=== PATIENT | male | born 1975 | race Caucasian/White ===

== ENCOUNTER → 2016-11-27 | Outpatient (CLI) | payer BC ==
[~2016-11-27] MED LIST: FERR50TA3 PO; HYDR12.55 PO; METO25TA56 PO; PRLSRUNK PO; SUCR1TAB PO
--- NOTE | 2016-11-27 09:03 | DIAGNOSTIC IMAGING REPORT ---
CHEST 2 VIEWS ROUTINE HISTORY: I20.8 Exertional [id number] COMPARISON: Chest 03/08/2008. FINDINGS: The lungs are clear. Cardiac silhouette is normal in size. No pleural effusions. No pneumothorax. IMPRESSION: No acute process. Electronically signed by: Alan Mejia M.D. 11/27/2016 9:01 AM
== END | disposition home or self-care (01) ==
LOC: C.RAD1850 08:22
PROVIDERS: ATTEND Internal Medicine Cardiovascular Disease
DX: I20.8 Other forms of angina pectoris (principal)

== ENCOUNTER 2016-11-28 13:33 | Inpatient (IN) | payer BC ==
[2016-11-28] VITALS (12 sets, daily range): BP systolic 130–156; BP diastolic 77–96; PULSE 63–92; TEMP 36.6–37.2; O2SAT 96–100; Ht 185.4 cm; Wt 128.6 kg
[~2016-11-28] VITALS: Ht 185.4 cm; Wt 128.6 kg
[~2016-11-28 13:33] MED LIST changes: -FERR50TA3 PO; -HYDR12.55 PO; -METO25TA56 PO; -SUCR1TAB PO
[2016-11-28] MEDS ORDERED: SODIUM CHLORIDE 0.9% 1000ML 1,000 ML IV STA (13:51)
[2016-11-28] MEDS ORDERED: HYDR12.55 PO (14:04)
[2016-11-28] MEDS ORDERED: METO25TA56 PO (14:04)
--- NOTE | 2016-11-28 14:26 | DIAGNOSTIC IMAGING REPORT ---
CHEST ONE VIEW PORTABLE CLINICAL HISTORY: GI bleed COMPARISON STUDY: 11/27/2016 FINDINGS: The heart is borderline enlarged. There is no failure. There is no focal pulmonary consolidation. There are no pleural effusions.[ IMPRESSION: No active disease in the chest. Electronically signed by: Shahram Newell M.D. 11/28/2016 2:24 PM Dictated Date/Time: 11/28/2016 2:24 PM
[2016-11-28 14:34] LABS: PARTIAL THROMBOPLASTIN RATIO 0.8; PROTHROMBIN TIME (PATIENT) 10.5 SECONDS (9.0-12.0)
[2016-11-28 14:47] LABS: HEMATOCRIT 24.6 % (42-52); MEAN CELL VOLUME 60.9 fL (80-100); MEAN CORPUSCULAR HEMOGLOBIN 14.9 pg (25-34); MEAN CORPUSCULAR HGB CONC 24.4 g/dl (32-36); PLATELET COUNT 368 K/uL (130-400); RED BLOOD COUNT 4.04 M/uL (4.7-6.1)
[2016-11-28 14:50] LABS: ALT/SGPT 21 U/L (12-78); AST/SGOT 10 U/L (15-37); BLOOD UREA NITROGEN 14 mg/dl (7-18); BUN/CREATININE RATIO 12.8 (10-20); CALCIUM 8.4 mg/dl (8.5-10.1); CARBON DIOXIDE 26 mmol/L (21-32); CHLORIDE 105 mmol/L (98-107); GLUCOSE 151 mg/dl (70-99); POTASSIUM 3.2 mmol/L (3.5-5.1); SODIUM 140 mmol/L (136-145)
[2016-11-28 14:53] LABS: ALKALINE PHOSPHATASE 63 U/L (45-117); ANISOCYTOSIS PRESENT; BASO % 1.1 %; BASO ABS # 0.09 K/uL (0-0.2); COMPLETE YES; EOS % 0.7 %; HYPOCHROMIA PRESENT; IG% 0.2 %; LYMPH % 24.8 %; LYMPH ABS # 2.06 K/uL (1.2-3.4); MICROCYTOSIS PRESENT; MONO % 7.5 %; NEUT % 65.7 %; POIKILOCYTOSIS PRESENT; TEAR DROP CELLS 1+
[2016-11-28] MEDS ORDERED: PANTOprazole INJ 80 MG in DEXTROSE 5% 100ML IV ONE (16:00)
--- NOTE | 2016-11-28 16:02 | History and Physical ---
History & Physical Date & Time of Service: Nov 28, 2016 at 16:01 Chief Complaint: Ref. By Doctor-Transfusion Primary Care Physician: Yue Jade MD History of Present Illness 41M sent to the ER by his pondman for anemia. Pt has been having chest pain with exertion since the summer, chest pain happened during activities, but was not related to meals, pain was described as burning, non radiating, and NOT like an elephant sitting on his chest, didn't radiate to the arm or mouth. Pt was getting worked up by his pondman this week, Dr. Guzman on Thursday for the first time, Dr. Guzman ordered routine blood work - the results came back today and Dr. Guzman sent him to the ER for low hemoglobin. Pt has had blood work from his primary care physician, he thinks in Aug 2016. PCP is Dr. Lang. ([facility]) FOBT positive today in the ER. ROS: No fevers, stools are typically brown, denies red or black stools, pee is clear to pale yellow. Pt has been more gassy than previously - every meal he eats he is farting a lot more. No SOB, no coughing. No recent trauma or source of bleed. Patient does NOT take multivitamins despite having a gastric bypass surgery in 2005. 2BM per day which is his normal. PMHx: HTN, no MIs in the past, PSHx: Momo-en Y Gastric Bypass in 2005, thyroglossal duct cyst removal at age 16. Allergies: NKDA Meds: Aspirin 326mg in January 2016 then Aspirin 81mg in February 2016. HCTZ, Metoprolol (Started this week). FMHx: No family h/o of colon cancer, Father from liver cancer. ( unknown cause of the cancer) SHx: [employer], , Patient is not a vegetarian, but doesn't eat a lot of red meat, non smoker, non drinker. Past Medical/Surgical History Medical Problems: (1) Gallstones Status: Resolved (2) Hypertension Status: Chronic (3) Pancreatitis Status: Resolved Surgical Problems: (1) S/P cholecystectomy Status: Resolved Family History Diabetes mellitus FH: cancer Social History Smoking Status: Never Smoker Immunizations History of Influenza Vaccine: Yes Influenza Vaccine Date: Oct 07, 2010 History of Tetanus Vaccine?: Yes Tetanus Immunization Date: Nov 21, 2009 History of Pneumococcal: Unknown History of Hepatitis B Vaccine: Unknown Multi-Drug Resistant Organisms History of MDRO: No Allergies Coded Allergies: No Known Allergies (Verified , 02/23/06) Home Medications Scheduled Hydrochlorothiazide (Hydrochlorothiazide), 12.5 MG PO DAILY Metoprolol Tartrate (Lopressor) (Lopressor), 25 MG PO BID Review of Systems Constitutional: No chills, No fever Respiratory: No cough, No shortness of breath, No sputum Cardiovascular: + chest pain, No edema Abdomen: + problem reported (increased flatus this week, ), No diarrhea, No nausea, No pain, No vomiting Musculoskeletal: No joint pain, No muscle pain Physical Exam Vital Signs Date Time Temp Pulse Resp B/P Pulse Ox O2 Delivery O2 Flow Rate FiO2 11/28/16 14:14 Room Air 11/28/16 13:53 93 11/28/16 13:50 91 20 150/89 100 Room Air 11/28/16 13:40 37.0 94 18 163/75 100 Room Air General Appearance: WD/WN, + obese Eyes: + pertinent finding (pt is wearing contacts, left contact has a 4mm white abrasion.) Respiratory/Chest: chest non-tender, lungs clear, normal breath sounds, no respiratory distress, no accessory muscle use Cardiovascular: regular rate, rhythm, no edema, no gallop, no JVD, no murmur, normal peripheral pulses, + pertinent finding (hairy chest) Abdomen/GI: normal bowel sounds, non tender, soft, no organomegaly, no pulsatile mass, normal rectal exam Extremities/Musculoskelatal: normal inspection, no calf tenderness, normal capillary refill, no pedal edema Neurologic/Psych: alert, normal mood/affect, oriented x 3 Skin: + pertinent finding (Haritha flag tattoo on RLE) Diagnostics Laboratory Results Results Past 24 Hours Test 11/28/16 13:51 11/28/16 14:08 11/28/16 15:37 11/28/16 15:38 Range/Units White Blood Count 8.30 4.8-10.8 K/uL Red Blood Count 4.04 4.7-6.1 M/uL Hemoglobin 6.0 14.0-18.0 g/dL Hematocrit 24.6 42-52 % Mean Corpuscular Volume 60.9 80-100 fL Mean Corpuscular Hemoglobin 14.9 25-34 pg Mean Corpuscular Hemoglobin Concent 24.4 32-36 g/dl Platelet Count 368 130-400 K/uL Neutrophils (%) (Auto) 65.7 % Lymphocytes (%) (Auto) 24.8 % Monocytes (%) (Auto) 7.5 % Eosinophils (%) (Auto) 0.7 % Basophils (%) (Auto) 1.1 % Neutrophils # (Auto) 5.45 1.4-6.5 K/uL Lymphocytes # (Auto) 2.06 1.2-3.4 K/uL Monocytes # (Auto) 0.62 0.11-0.59 K/uL Eosinophils # (Auto) 0.06 0-0.5 K/uL Basophils # (Auto) 0.09 0-0.2 K/uL RDW Standard Deviation 46.2 36.4-46.3 fL RDW Coefficient of Variation 20.9 11.5-14.5 % Immature Granulocyte % (Auto) 0.2 % Immature Granulocyte # (Auto) 0.02 0.00-0.02 K/uL Hypochromasia PRESENT Poikilocytosis PRESENT Anisocytosis PRESENT Microcytosis PRESENT Tear Drop Cells 1+ Prothrombin Time 10.5 9.0-12.0 SECONDS Prothromb Time International Ratio 1.0 0.9-1.1 Activated Partial Thromboplast Time 19.9 21.0-31.0 SECONDS Partial Thromboplastin Ratio 0.8 Sodium Level 140 136-145 mmol/L Potassium Level 3.2 3.5-5.1 mmol/L Chloride Level 105 98-107 mmol/L Carbon Dioxide Level 26 21-32 mmol/L Anion Gap 9.0 3-11 mmol/L Blood Urea Nitrogen 14 7-18 mg/dl Creatinine 1.10 0.60-1.40 mg/dl Est Creatinine Clear Calc Drug Dose 128.1 ml/min Estimated GFR () 97.5 Estimated GFR (Non- 84.1 BUN/Creatinine Ratio 12.8 10-20 Random Glucose 151 70-99 mg/dl Calcium Level 8.4 8.5-10.1 mg/dl Total Bilirubin 0.4 0.2-1 mg/dl Direct Bilirubin < 0.1 0-0.2 mg/dl Aspartate Amino Transf (AST/SGOT) 10 15-37 U/L Alanine Aminotransferase (ALT/SGPT) 21 12-78 U/L Alkaline Phosphatase 63 45-117 U/L Total Protein 7.0 6.4-8.2 gm/dl Albumin 3.4 3.4-5.0 gm/dl Lipase 178 73-393 U/L Creatine Kinase MB Ratio 0-3.0 Diagnostic Radiology CHEST ONE VIEW PORTABLE CLINICAL HISTORY: GI bleed COMPARISON STUDY: 11/27/2016 FINDINGS: The heart is borderline enlarged. There is no failure. There is no focal pulmonary consolidation. There are no pleural effusions.[ IMPRESSION: No active disease in the chest. EKG Normal sinus rhythm Nonspecific ST and T wave abnormality Abnormal ECG When compared with ECG of 08-MAR-2008 14:24, Non-specific change in ST segment in Inferior leads Impression Assessment and Plan 41M with a h/o Momo-en Y gastric bypass in 2015 that was sent to the ER by pondman by a finding of anemia initial lab work. Pt has been having exertional chest pain x 6 months. Hemoglobin in the ER was 6.0. EKG showed non specific EKG changes. FOBT in the ER was positive. Pt received 2 units of PRBC in the ED. Pt was admitted to telemetry for anemia and GI bleed. Cardiology and GI were consulted. Microcytoic Hypochromatic Anemia - Pt is asymptomatic. VSS, MCV shows microcytic anemia. Pt had a Momo-en Y gastric bypass in 2015. - Transfused 2unit PRBC in the ER. - Called lab for add on iron, transferrin, TIBC, ferritin and copper from previous blood draw. - B12 from [employer] from January 2016 showed a level of 304. Will add B12 injection. - will check H&H Q6H. Pending iron studies, consider iron repletion. - NSS @150mls/hr + 20meq potassium. Nonspecific ST elevations - EKG in the ER showed nonspecific ST segment abnormalities. EKG from [employer] on Nov 24, [address] segment depression ([facility] cardiology office). - Trops, CKMB, Mg pending. - [place] [place] Dr. Guzman on Thursday[place] - Pt was admitted to telemetry. - c/w Lopressor 5mg IV Q6H. GI Bleed, unlikely to be an active GI bleed - FOBT positive in the ER with brown stool. Pt denies melena or BRBPR at home. 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 - GI Consulted (Dr. Gilman) - Will make NPO in case of scope tomorrow. - c/w Protonix Drip. HTN - systolic 150s, hold HCTZ, continue to monitor. DVT Proph: SCDs Dispo - Full Code, PCP: Dr Jade, admitted to tele Resident Physician Supervision Note: I interviewed and examined the patient. Discussed with the resident and agree with findings and plan as documented in the note. Any exceptions or clarifications are listed here: 41-year-old male is sent to the emergency department by his pondman after precatheterization blood work noted a low hemoglobin. The patient has a past medical history of a Momo-en-Y gastric bypass performed at [facility]; he has not been taking vitamin supplementation for quite some time. He describes a gradual progression of exercise intolerance manifested initially with shortness of breath (over the summer he noted being short of breath when mowing the grass or walking uphill), to the development of chest discomfort with activity (which prompted cardiology referral), to an orthostatic dizziness over the last few days. The patient apparently passed a stress test in late fall 2015 but given his persistent symptoms he was referred to cardiology for consideration of heart catheterization. He denies any typical reflux symptoms. His chest discomfort does seem to be exertional; he denies any postprandial or nighttime symptoms. He does take an aspirin daily. Fecal occult blood testing in the emergency department is positive; stool was reported to be brown. Given the patient provided history, combined with his lack of symptoms until recent, I suspect his anemia is the result of a slow gastrointestinal bleed perhaps combined with limited reticulocytosis secondary to the typical nutrient deficiencies the status post gastric bypass patient. Agree with transfusion of 2 units packed red blood cells, intravenous proton pump inhibitor. cardiology and gastroenterology consultation, and admission to the telemetry unit. I suspect his angina secondary to his anemia and not occlusive coronary artery disease but will discuss with cardiology. Documented By: Benji Burk Resident Involvement: Resident Care Provided Care Provided: Adult [facility] Medicine
[2016-11-28 16:24] LABS: URINE APPEARANCE CLEAR (CLEAR); URINE BILIRUBIN NEG (NEG); URINE COLOR YELLOW; URINE NITRITE NEG (NEG); URINE SPECIFIC GRAVITY 1.019 (1.000-1.030); UROBILINOGEN NEG (NEG)
[2016-11-28 16:27] LABS: MANUAL MICROSCOPIC REQUIRED? NO; REVIEW REQ? NO
[2016-11-28] MEDS ORDERED: PANTOprazole INJ 40 MG in DEXTROSE 5% 100ML IV SCH (16:30)
[2016-11-28] MEDS ORDERED: POLYETHYLENE (MIRALAX) 17 GM PACK PO PRN (16:45)
[2016-11-28] MEDS ORDERED: NITROGLYCERIN 0.4 MG SL PER TAB CHARGE SL PRN (16:45)
[2016-11-28] MEDS ORDERED: ALUMINUM/MAGNESIUM/SIMETH (MAALOX MAX) 30 ML UDC PO PRN (16:45)
[2016-11-28] MEDS ORDERED: MAGNESIUM HYDROXIDE SUSP 30 ML UDC PO PRN (16:45)
[2016-11-28] MEDS ORDERED: MoRPHine SULFATE 2 MG/ML CARP IV PRN (16:45)
[2016-11-28] MEDS ORDERED: ONDANSETRON INJ 2 MG/ML 2 ML VIAL IV PRN (16:45)
--- NOTE | 2016-11-28 16:51 | EMERGENCY ROOM VISIT NOTE ---
History Report prepared by Sawyer: Jennifer Torres Under the Supervision of: Dr. Tin Lieberman D.O. First contact with patient: 13:47 Chief Complaint: REFERRED BY DOCTOR Stated Complaint: REF. BY DOCTOR-TRANSFUSION History of Present Illness The patient is a 41 year old male who presents to the Emergency Room with complaints of persistent abnormal blood work that was drawn two days ago. The patient states that since the summer he has been experiencing chest pain with exertion. He states that he followed with his PCP for his symptoms who then referred the patient to a side trimmer. The patient states that he saw the side trimmer on Thursday and was told that he needed to have a heart catheterization to look further in to the problem. He states that two days ago he had blood work and a chest x-ray that revealed a low hemoglobin. The patient denies any history of anemia or taking any NSAIDS on a daily basis. He does note that recently he would feel weak in the morning, stating that he would want to sit down after 15-20 minutes. The patient does state that after he would eat a granola bar and drink orange juice he would feel better. He states that he went on a cruise from November 01-, but states that his symptoms have been ongoing before his trip. Pt denies headache, change in vision, cough, runny nose, fevers, shortness of breath, nausea, vomiting, diarrhea, pain with urination, and melena. He later admits to taking an aspirin daily and Aleve fairly intermittently. Source of History: patient Onset: two days ago Position: other (global) Quality: other (abnormal labs) Timing: other (persistent) Associated Symptoms: + chest pain (with exertion), + weakness Review of Systems See HPI for pertinent positives & negatives. A total of 10 systems reviewed and were otherwise negative. Past Medical & Surgical Medical Problems: (1) Anemia (2) Chest pain (3) Gallstones (4) GI bleed (5) Hypertension (6) Pancreatitis Surgical Problems: (1) S/P cholecystectomy Family History Diabetes mellitus FH: cancer Social History Smoking Status: Never Smoker Smokeless Tobacco Use: No Alcohol Use: occasionally Marital Status: Housing Status: lives with significant other Occupation Status: employed Current/Historical Medications Scheduled Hydrochlorothiazide (Hydrochlorothiazide), 12.5 MG PO DAILY Metoprolol Tartrate (Lopressor) (Lopressor), 25 MG PO BID Allergies Coded Allergies: No Known Allergies (Verified , 02/23/06) Physical Exam Vital Signs Date Time Temp Pulse Resp B/P Pulse Ox O2 Delivery O2 Flow Rate FiO2 11/28/16 14:14 Room Air 11/28/16 13:53 93 11/28/16 13:50 91 20 150/89 100 Room Air 11/28/16 13:40 37.0 94 18 163/75 100 Room Air Physical Exam GENERAL: Sitting up in bed, alert, well appearing, well nourished, no distress, non-toxic EYE EXAM: normal conjunctiva, slight pale rings within corneas bilaterally. OROPHARYNX: no exudate, no erythema, lips, buccal mucosa, and tongue normal and mucous membranes are moist NECK: supple, no nuchal rigidity, no adenopathy, non-tender LUNGS: Clear to auscultation. Normal chest wall mechanics HEART: no murmurs, S1 normal and S2 normal ABDOMEN: abdomen soft, non-tender, normo-active bowel sounds, no masses, no rebound or guarding. BACK: Back is symmetrical on inspection and there is no deformity, no midline tenderness, no CVA tenderness. RECTAL: Heme positive. SKIN: no rashes and no bruising UPPER EXTREMITIES: upper extremities are grossly normal. LOWER EXTREMITIES: No pitting edema. NEURO EXAM: Normal sensorium, cranial nerves II-XII grossly intact, normal speech, no gross weakness of arms, no gross weakness of legs. Medical Decision & Procedures ER Provider Diagnostic Interpretation: Xray results per the radiologist and my interpretation. Other results have been interpreted by the radiologist and reviewed by me. CHEST ONE VIEW PORTABLE CLINICAL HISTORY: GI bleed COMPARISON STUDY: 11/27/2016 FINDINGS: The heart is borderline enlarged. There is no failure. There is no focal pulmonary consolidation. There are no pleural effusions.[ IMPRESSION: No active disease in the chest. Electronically signed by: Shahram Newell M.D. 11/28/2016 2:24 PM Dictated Date/Time: 11/28/2016 2:24 PM Laboratory Results 11/28/16 14:08 Red Blood Count 4.04, Mean Corpuscular Volume 60.9, Mean Corpuscular Hemoglobin 14.9, Mean Corpuscular Hemoglobin Concent 24.4, Neutrophils (%) (Auto) 65.7, Lymphocytes (%) (Auto) 24.8, Monocytes (%) (Auto) 7.5, Eosinophils (%) (Auto) 0.7, Basophils (%) (Auto) 1.1, Neutrophils # (Auto) 5.45, Lymphocytes # (Auto) 2.06, Monocytes # (Auto) 0.62, Eosinophils # (Auto) 0.06, Basophils # (Auto) 0.09 11/28/16 14:08 Test 11/28/16 14:00 11/28/16 14:08 11/28/16 15:37 11/28/16 15:38 Urine Color YELLOW Urine Appearance CLEAR (CLEAR) Urine pH 6.0 (4.5-7.5) Urine Specific [place] 1.019 (1.000-1.030) Urine Protein NEG (NEG) Urine Glucose (UA) NEG (NEG) Urine Ketones NEG (NEG) Urine Occult Blood NEG (NEG) Urine Nitrite NEG (NEG) Urine Bilirubin NEG (NEG) Urine Urobilinogen NEG (NEG) Urine Leukocyte Esterase NEG (NEG) White Blood Count 8.30 K/uL (4.8-10.8) Red Blood Count 4.04 M/uL (4.7-6.1) Hemoglobin 6.0 g/dL (14.0-18.0) Hematocrit 24.6 % (42-52) Mean Corpuscular Volume 60.9 fL (80-100) Mean Corpuscular Hemoglobin 14.9 pg (25-34) Mean Corpuscular Hemoglobin Concent 24.4 g/dl (32-36) Platelet Count 368 K/uL (130-400) Neutrophils (%) (Auto) 65.7 % Lymphocytes (%) (Auto) 24.8 % Monocytes (%) (Auto) 7.5 % Eosinophils (%) (Auto) 0.7 % Basophils (%) (Auto) 1.1 % Neutrophils # (Auto) 5.45 K/uL (1.4-6.5) Lymphocytes # (Auto) 2.06 K/uL (1.2-3.4) Monocytes # (Auto) 0.62 K/uL (0.11-0.59) Eosinophils # (Auto) 0.06 K/uL (0-0.5) Basophils # (Auto) 0.09 K/uL (0-0.2) RDW Standard Deviation 46.2 fL (36.4-46.3) RDW Coefficient of Variation 20.9 % (11.5-14.5) Immature Granulocyte % (Auto) 0.2 % Immature Granulocyte # (Auto) 0.02 K/uL (0.00-0.02) Hypochromasia PRESENT Poikilocytosis PRESENT Anisocytosis PRESENT Microcytosis PRESENT Tear Drop Cells 1+ Prothrombin Time 10.5 SECONDS (9.0-12.0) Prothromb Time International Ratio 1.0 (0.9-1.1) Activated Partial Thromboplast Time 19.9 SECONDS (21.0-31.0) Partial Thromboplastin Ratio 0.8 Anion Gap 9.0 mmol/L (3-11) Est Creatinine Clear Calc Drug Dose 128.1 ml/min Estimated GFR () 97.5 Estimated GFR (Non- 84.1 BUN/Creatinine Ratio 12.8 (10-20) Calcium Level 8.4 mg/dl (8.5-10.1) Total Bilirubin 0.4 mg/dl (0.2-1) Direct Bilirubin < 0.1 mg/dl (0-0.2) Aspartate Amino Transf (AST/SGOT) 10 U/L (15-37) Alanine Aminotransferase (ALT/SGPT) 21 U/L (12-78) Alkaline Phosphatase 63 U/L (45-117) Total Protein 7.0 gm/dl (6.4-8.2) Albumin 3.4 gm/dl (3.4-5.0) Lipase 178 U/L (73-393) Creatine Kinase MB Ratio (0-3.0) Laboratory results per my review. Medications Administered Medications (Trade) Dose Ordered Sig/Kennedi Route Start Time Stop Time Status Last Admin Dose Admin Sodium Chloride (Nss 1000ml) 1,000 ml @ 999 mls/hr Q1H1M STAT IV 11/28/16 13:51 11/28/16 14:51 DC 11/28/16 13:51 999 MLS/HR ECG Indication: weakness, other (abnormal labs - anemia) Rate (beats per minute): 92 Rhythm: sinus rhythm Findings: nonspecific-ST abn (Lateral), other (normal axis) ED Course ED COURSE: Vital signs were reviewed and showed hypertensive The patients medical record was reviewed The above diagnostic studies were performed and reviewed. ED treatments and interventions as stated above. 1349: The patient was evaluated in room C4. A complete history and physical examination was performed. 1351: Ordered Sodium Chloride 1000 ml @ 999 mls/hr IV. 1520: Upon reevaluation, the patient is resting comfortably.I discussed my findings with the patient and he understands and agrees with the treatment plan. He signed the consent to receive a blood transfusion at this time. Ordered Pantoprazole Sodium 1 ea IV Based on the patients age, coexisting illnesses, exam and lab findings the decision to treat as an inpatient was made. The patient remained stable while under my care. The patient will be evaluated for further management. 1535: I discussed the patient's case with MICHELLE Maya. He is going to evaluate the patient for further treatment. Medical Decision Differential Diagnosis includes but is not limited to dehydration, stroke, anemia, hypoglycemia, hyponatremia, hypernatremia, urinary tract infection, pneumonia, bronchitis, sepsis, gastroenteritis, additional abdominal pathology, metabolic abnormalities and infections. Patient is a 41-year-old male who presents the ER referred in by cardiology for anemia. Patient has been having exertional chest pain shortness of breath which has been worsening over the past 6 months. Labs show hemoglobin of 6. BMP has mild hypokalemia. LFTs and bilirubin are unremarkable. Patient currently denies any chest pain. INR was normal. Rectal was heme positive. He doesn't take aspirin daily and intermittent relief. He was given Protonix drip and bolus as I favor this likely an upper GI bleed. Patient was typed and crossed and was ordered 2 units of PRBCs. He was transfused while in the ER. Patient was updated at bedside. He was agreeable to the PRBCs. Risk and benefits were explained. Patient was admitted to internal medicine for further workup. Consults Time Called: [phone] Consulting Physician: MICHELLE Maya Returned Call: [phone] I discussed the patient's case with MICHELLE Maya. He is going to evaluate the patient for further treatment. Impression Primary Impression: Symptomatic anemia Additional Impressions: GI bleed, Hypokalemia Scribe Attestation The scribe's documentation has been prepared under my direction and personally reviewed by me in its entirety. I confirm that the note above accurately reflects all work, treatment, procedures, and medical decision making performed by me. Departure Information Dispostion Being Evaluated By Hospitalist Referrals Yue Jade MD (PCP)
[2016-11-28 17:38] LABS: MAGNESIUM 2.2 mg/dl (1.8-2.4)
[2016-11-28] MEDS: METOPROLOL TARTRATE 1 MG/ML VIAL IV. SCH (19:32)
[2016-11-28] MEDS: NITROGLYCERIN OINT 2% 1GM PACKET EXT SCH (19:33)
[2016-11-28] MEDS ORDERED: CYANOCOBALAMIN 1000 MCG/ML VIAL IM ONE (20:00)
[2016-11-28] MEDS: PANTOprazole INJ 40 MG in DEXTROSE 5% 100ML 100 ML IV SCH (21:11)
[2016-11-28] MEDS: NSS + 20MEQ KCL 1000ML 1,000 ML IV SCH (21:49)
[2016-11-29] VITALS (16 sets, daily range): BP systolic 112–145; BP diastolic 68–99; PULSE 61–77; TEMP 36.5–37.1; O2SAT 93–99
[2016-11-29] MEDS: METOPROLOL TARTRATE 1 MG/ML VIAL IV. SCH ×2 (00:19→05:32)
[2016-11-29] MEDS: ACETAMINOPHEN 325 MG TAB PO PRN ×2 (00:26→08:32)
[2016-11-29 00:37] LABS: HEMATOCRIT 25.2 % (42-52)
[2016-11-29] MEDS: PANTOprazole INJ 40 MG in DEXTROSE 5% 100ML 100 ML IV SCH ×5 (02:09→21:05)
[2016-11-29] MEDS: NITROGLYCERIN OINT 2% 1GM PACKET EXT SCH ×2 (02:09→08:13)
[2016-11-29 07:53] LABS: HEMATOCRIT 27.4 % (42-52)
[2016-11-29] MEDS: NSS + 20MEQ KCL 1000ML 1,000 ML IV SCH ×3 (08:20→16:19)
[2016-11-29] MEDS ORDERED: NURSING VERBAL MED ORDER ONE ×2 (10:00→11:00)
--- NOTE | 2016-11-29 10:10 | Hospitalist Progress Note ---
Hospitalist Progress Note Date of Service Nov 29, 2016. Subjective Pt evaluation today including: conversation w/ patient, physical exam, chart review, lab review, review of studies, conversation w/ sec reporting consultant, review of inpatient medication list Pain: Denies PO Intake: NPO Voiding: no voiding problems 41-year-old male with history of Momo-en-Y gastric bypass admitted yesterday with anemia (hemoglobin of 6) and brown occult positive stools. Suspect this is been a gradual decline for approximate 4-6 months based on the patient's recall of his symptoms. He had been referred to cardiology for his symptoms; he had a negative stress test and was ultimately being prepared for cardiac catheterization when the precatheterization labs noted the profound anemia. He was subsequently referred to the emergency department for further evaluation and treatment. The patient received 4 units of packed red blood cells since his admission. He is currently nothing by mouth. Upon my examination, he is lying semi-reclined in bed. He denies chest pain or shortness of breath. He denies any abdominal pain. Constitutional: No chills, No fever Respiratory: + dyspnea on exertion, No dyspnea at rest, No shortness of breath Cardiovascular: No chest pain Male : No incontinence Neurologic: + weakness Psychiatric: No anxiety Endo: + fatigue, No excessive thirst, No excessive urination All Other Systems: Reviewed and Negative Objective Vital Signs Date Time Temp Pulse Resp B/P Pulse Ox O2 Delivery O2 Flow Rate FiO2 11/29/16 08:00 Room Air 11/29/16 07:29 36.7 64 18 144/88 98 Room Air 11/29/16 05:32 63 130/80 11/29/16 05:29 36.7 63 20 130/80 96 11/29/16 04:27 36.5 77 18 121/69 94 11/29/16 04:00 Room Air 11/29/16 03:57 36.6 70 18 130/68 93 11/29/16 03:02 36.8 11/29/16 02:56 62 18 133/74 95 11/29/16 02:20 36.8 63 20 132/75 96 11/29/16 01:44 36.7 63 18 112/70 94 11/29/16 01:27 36.9 61 18 125/70 96 Room Air 11/29/16 00:19 82 146/87 11/28/16 23:59 Room Air 11/28/16 23:41 36.6 68 20 135/77 96 Room Air 11/28/16 21:31 37.0 67 18 132/85 100 11/28/16 20:31 37.0 67 18 135/86 97 11/28/16 20:01 36.9 70 18 137/84 99 11/28/16 20:00 Room Air 11/28/16 19:47 37.2 63 18 145/91 99 11/28/16 19:32 74 130/83 11/28/16 19:10 36.9 74 16 130/83 99 11/28/16 18:16 37.2 88 20 154/90 98 Room Air 11/28/16 18:10 37.2 88 20 154/90 97 11/28/16 17:55 97 Room Air 11/28/16 17:55 37.2 75 18 141/85 98 11/28/16 17:40 37.1 90 18 143/92 97 11/28/16 17:25 37.1 92 20 156/96 98 11/28/16 17:20 98 Room Air 11/28/16 17:07 37.0 89 18 152/85 100 11/28/16 14:14 Room Air 11/28/16 13:53 93 11/28/16 13:50 91 20 150/89 100 Room Air 11/28/16 13:40 37.0 94 18 163/75 100 Room Air Physical Exam General Appearance: WD/WN, no apparent distress Eyes: normal inspection, PERRL, EOMI ENT: normal ENT inspection, hearing grossly normal Neck: supple, no adenopathy, thyroid normal, no JVD Respiratory/Chest: chest non-tender, lungs clear, normal breath sounds Cardiovascular: regular rate, rhythm, no edema Abdomen: normal bowel sounds, non tender, soft, no organomegaly Extremities: normal range of motion, non-tender, normal inspection Neurologic/Psychiatric: no motor/sensory deficits, alert, normal mood/affect, oriented x 3 Skin: normal color, warm/dry Lymphatic: no adenopathy Laboratory Results Last 24 Hours Test 11/28/16 14:00 11/28/16 14:08 11/28/16 23:31 11/29/16 04:55 Urine Color YELLOW Urine Appearance CLEAR Urine pH 6.0 Urine Specific [place] 1.019 Urine Protein NEG Urine Glucose (UA) NEG Urine Ketones NEG Urine Occult Blood NEG Urine Nitrite NEG Urine Bilirubin NEG Urine Urobilinogen NEG Urine Leukocyte Esterase NEG White Blood Count 8.30 K/uL Red Blood Count 4.04 M/uL Hemoglobin 6.0 g/dL 6.6 g/dL 7.7 g/dL Hematocrit 24.6 % 25.2 % 29.0 % Mean Corpuscular Volume 60.9 fL Mean Corpuscular Hemoglobin 14.9 pg Mean Corpuscular Hemoglobin Concent 24.4 g/dl Platelet Count 368 K/uL Neutrophils (%) (Auto) 65.7 % Lymphocytes (%) (Auto) 24.8 % Monocytes (%) (Auto) 7.5 % Eosinophils (%) (Auto) 0.7 % Basophils (%) (Auto) 1.1 % Neutrophils # (Auto) 5.45 K/uL Lymphocytes # (Auto) 2.06 K/uL Monocytes # (Auto) 0.62 K/uL Eosinophils # (Auto) 0.06 K/uL Basophils # (Auto) 0.09 K/uL RDW Standard Deviation 46.2 fL RDW Coefficient of Variation 20.9 % Immature Granulocyte % (Auto) 0.2 % Immature Granulocyte # (Auto) 0.02 K/uL Hypochromasia PRESENT Poikilocytosis PRESENT Anisocytosis PRESENT Microcytosis PRESENT Tear Drop Cells 1+ Prothrombin Time 10.5 SECONDS Prothromb Time International Ratio 1.0 Activated Partial Thromboplast Time 19.9 SECONDS Partial Thromboplastin Ratio 0.8 Sodium Level 140 mmol/L Potassium Level 3.2 mmol/L Chloride Level 105 mmol/L Carbon Dioxide Level 26 mmol/L Anion Gap 9.0 mmol/L Blood Urea Nitrogen 14 mg/dl Creatinine 1.10 mg/dl Est Creatinine Clear Calc Drug Dose 128.1 ml/min Estimated GFR () 97.5 Estimated GFR (Non- 84.1 BUN/Creatinine Ratio 12.8 Random Glucose 151 mg/dl Calcium Level 8.4 mg/dl Magnesium Level 2.2 mg/dl Total Bilirubin 0.4 mg/dl Direct Bilirubin < 0.1 mg/dl Aspartate Amino Transf (AST/SGOT) 10 U/L Alanine Aminotransferase (ALT/SGPT) 21 U/L Alkaline Phosphatase 63 U/L Total Creatine Kinase 87 U/L 66 U/L 67 U/L Creatine Kinase MB < 0.5 ng/ml < 0.5 ng/ml < 0.5 ng/ml Creatine Kinase MB Ratio Troponin I < 0.015 ng/ml < 0.015 ng/ml < 0.015 ng/ml Total Protein 7.0 gm/dl Albumin 3.4 gm/dl Lipase 178 U/L Test 11/29/16 06:12 11/29/16 09:38 Hemoglobin 7.4 g/dL Hematocrit 27.4 % Assessment and Plan 41-year-old male is 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 The patient has a past medical history of a Momo-en-Y gastric bypass performed at [facility]; he has not been taking vitamin supplementation for quite some time. He describes a gradual progression of exercise intolerance manifested initially with shortness of breath (over the summer he noted being short of breath when mowing the grass or walking uphill), to the development of chest discomfort with activity (which prompted cardiology referral), to an orthostatic dizziness over the last few days. The patient apparently passed a stress test in late fall 2015 but given his persistent symptoms he was referred to cardiology for consideration of heart catheterization. Microcytoic Hypochromatic Anemia Patient is symptomatic review of systems standpoint but he denied stable. He is now status post 4 units of packed red blood cells. I suspect given his occult positive stools that this may be secondary to a slow GI bleed in combination with lack of appropriate vitamin supplementation given his post gastric bypass status. Nonspecific ST elevations Suspect his exertional symptoms are secondary to his anemia. Cardiology will be seeing the patient today. GI Bleed, unlikely to be an active GI bleed Hold aspirin. Protonic strip continues. The patient remains nothing by mouth pending gastroenterology consultation. HTN Holding diuretic at present; monitor blood pressures DVT Proph Heparin would be contraindicated indicated given his anemia and possible GI bleed. Continue SCDs. Dispo Full Code, PCP: Dr Jade, admitted to tele
[2016-11-29] MEDS ORDERED: POTASSIUM CHLORIDE 20 MEQ TABCR PO ONE (10:30)
[2016-11-29 10:36] LABS: CALCIUM 8.2 mg/dl (8.5-10.1); CREATININE 0.76 mg/dl (0.60-1.40); POTASSIUM 3.6 mmol/L (3.5-5.1)
[2016-11-29 10:43] LABS: HEMATOCRIT 29.5 % (42-52)
--- NOTE | 2016-11-29 11:23 | Cardiology Follow-Up ---
Subjective Subjective Date of Service: Nov 29, 2016. Pt evaluation today including: conversation w/ patient, conversation w/ family , physical exam, chart review, lab review, review of studies, conversation w/ sap security consultant, review of inpatient medication list Pain: none PO Intake: npo Voiding: no voiding problems Additional Details: denies cp, sob, n/v/d, syncope, GIB. Chest discomfort is only with heavy exertion. No chest pain during his recent stress test. He denies dark stools. No family history of CAD. Problem List Medical Problems: (1) Hypokalemia Status: Acute (2) Symptomatic anemia Status: Acute Review of Systems Constitutional: No chills, No fatigue, No fever, No problem reported, No weakness, No weight loss Eyes: No diplopia, No problem reported, No worsening of vision ENT: No hearing loss, No problem reported, No trouble swallowing, No unusual epistaxis Respiratory: No cough, No dyspnea at rest, No dyspnea on exertion (only with very heavy exertion), No hemoptysis, No problem reported, No shortness of breath , No sputum, No wheezing Cardiac: No PND, No chest pain, No claudication, No edema, No orthopnea, No palpitations, No problem reported Breast: No breast pain, No problem reported Abdomen: No GI bleeding (FOBT was positive), No constipation, No diarrhea, No nausea, No pain, No problem reported, No vomiting Musculoskeletal: No calf pain, No joint pain, No muscle pain, No problem reported, No swelling Male : No dysuria, No hematuria, No incontinence, No problem reported Neurologic: No balance problems, No memory loss, No numbness/tingling, No paralysis, No problem reported, No vertigo, No weakness Psychiatric: No anxiety, No depression symptoms, No insomnia, No problem reported, No substance abuse Heme: No abnormal bleeding/bruising, No problem reported Endo: No excessive thirst, No excessive urination, No fatigue Skin: No bleeding, No color change, No itch, No new/changing skin lesions, No rash Objective Vital Signs Last Vital Signs Documentation Date Time Temp Pulse Resp B/P Pulse Ox O2 Delivery O2 Flow Rate FiO2 11/29/16 08:00 Room Air 11/29/16 07:29 36.7 64 18 144/88 98 Physical Exam: General Appearance: WD/WN, no apparent distress Eyes: bilateral eyes EOMI, bilateral eyes normal inspection ENT: normal ENT inspection, hearing grossly normal Neck: supple, no adenopathy, thyroid normal, no JVD Respiratory/Chest: chest non-tender, lungs clear, normal breath sounds, no respiratory distress, no accessory muscle use Cardiovascular: regular rate, rhythm, no edema, no gallop, no JVD, no murmur Abdomen: normal bowel sounds, non tender, soft, no organomegaly Extremities: normal range of motion, non-tender, normal inspection, no pedal edema, no calf tenderness Neurologic/Psychiatric: alert, normal mood/affect, oriented x 3 Skin: normal color, warm/dry, no rash, + pertinent finding (tattoos) Lymphatic: no adenopathy Assessment and Plan 1. Anemia 2. Exertional angina - only with very heavy exertion. I imagine his angina is all related to the anemia. Transfuse and GI workup. Cardiac catheterization if angina persists after transfusions, however, not a stent candidate. It would be diagnostic only to decide his medical regimen (? statin therapy) or if surgery was recommended. Will continue to follow however no further cardiac testing is planned at this time. Medications: Current Inpatient Medications Medications (Trade) Dose Ordered Sig/Kennedi Route Start Time Stop Time Status Last Admin Dose Admin Potassium Chloride/Sodium Chloride (Nss + 20meq KCl 1000ml) 1,000 ml @ 75 mls/hr [id number] IV 11/28/16 19:00 12/28/16 16:35 11/29/16 08:33 150 MLS/HR Acetaminophen (Tylenol Tab) 650 mg Q4H PRN PO 11/28/16 16:45 12/28/16 16:44 11/29/16 08:32 650 MG Al Hydrox/Mg Hydrox/Simethicone (Maalox Max Susp) 15 ml Q4H PRN PO 11/28/16 16:45 12/28/16 16:44 Magnesium Hydroxide (Milk Of Magnesia Susp) 30 ml Q12H PRN PO 11/28/16 16:45 12/28/16 16:44 Ondansetron HCl (Zofran Inj) 4 mg Q6H PRN IV 11/28/16 16:45 12/28/16 16:44 Nitroglycerin (Nitrostat Tab) 0.4 mg UD PRN SL 11/28/16 16:45 12/28/16 16:44 Morphine Sulfate (MoRPHine SULFATE INJ) 2 mg Q30M PRN IV 11/28/16 16:45 12/12/16 16:44 Polyethylene 17 gm 17 gm DAILY PRN PO 11/28/16 16:45 12/28/16 16:44 Pantoprazole Sodium/Dextrose (Protonix Inj/D5 100ml) 100 ml @ 20 mls/hr Q5H IV 11/28/16 21:00 12/28/16 16:59 11/29/16 07:13 20 MLS/HR Lab Results: 11/28/16 14:08 Red Blood Count 4.04, Mean Corpuscular Volume 60.9, Mean Corpuscular Hemoglobin 14.9, Mean Corpuscular Hemoglobin Concent 24.4, Neutrophils (%) (Auto) 65.7, Lymphocytes (%) (Auto) 24.8, Monocytes (%) (Auto) 7.5, Eosinophils (%) (Auto) 0.7, Basophils (%) (Auto) 1.1, Neutrophils # (Auto) 5.45, Lymphocytes # (Auto) 2.06, Monocytes # (Auto) 0.62, Eosinophils # (Auto) 0.06, Basophils # (Auto) 0.09 11/29/16 10:00 11/29/16 10:00 Test 11/28/16 14:00 11/28/16 14:08 11/29/16 04:55 11/29/16 10:00 Urine Color YELLOW Urine Appearance CLEAR (CLEAR) Urine pH 6.0 (4.5-7.5) Urine Specific [place] 1.019 (1.000-1.030) Urine Protein NEG (NEG) Urine Glucose (UA) NEG (NEG) Urine Ketones NEG (NEG) Urine Occult Blood NEG (NEG) Urine Nitrite NEG (NEG) Urine Bilirubin NEG (NEG) Urine Urobilinogen NEG (NEG) Urine Leukocyte Esterase NEG (NEG) White Blood Count 8.30 K/uL (4.8-10.8) Red Blood Count 4.04 M/uL (4.7-6.1) Hemoglobin 6.0 g/dL (14.0-18.0) Hematocrit 24.6 % (42-52) Mean Corpuscular Volume 60.9 fL (80-100) Mean Corpuscular Hemoglobin 14.9 pg (25-34) Mean Corpuscular Hemoglobin Concent 24.4 g/dl (32-36) Platelet Count 368 K/uL (130-400) Neutrophils (%) (Auto) 65.7 % Lymphocytes (%) (Auto) 24.8 % Monocytes (%) (Auto) 7.5 % Eosinophils (%) (Auto) 0.7 % Basophils (%) (Auto) 1.1 % Neutrophils # (Auto) 5.45 K/uL (1.4-6.5) Lymphocytes # (Auto) 2.06 K/uL (1.2-3.4) Monocytes # (Auto) 0.62 K/uL (0.11-0.59) Eosinophils # (Auto) 0.06 K/uL (0-0.5) Basophils # (Auto) 0.09 K/uL (0-0.2) RDW Standard Deviation 46.2 fL (36.4-46.3) RDW Coefficient of Variation 20.9 % (11.5-14.5) Immature Granulocyte % (Auto) 0.2 % Immature Granulocyte # (Auto) 0.02 K/uL (0.00-0.02) Hypochromasia PRESENT Poikilocytosis PRESENT Anisocytosis PRESENT Microcytosis PRESENT Tear Drop Cells 1+ Prothrombin Time 10.5 SECONDS (9.0-12.0) Prothromb Time International Ratio 1.0 (0.9-1.1) Activated Partial Thromboplast Time 19.9 SECONDS (21.0-31.0) Partial Thromboplastin Ratio 0.8 Magnesium Level 2.2 mg/dl (1.8-2.4) Total Bilirubin 0.4 mg/dl (0.2-1) Direct Bilirubin < 0.1 mg/dl (0-0.2) Aspartate Amino Transf (AST/SGOT) 10 U/L (15-37) Alanine Aminotransferase (ALT/SGPT) 21 U/L (12-78) Alkaline Phosphatase 63 U/L (45-117) Total Protein 7.0 gm/dl (6.4-8.2) Albumin 3.4 gm/dl (3.4-5.0) Lipase 178 U/L (73-393) Total Creatine Kinase 67 U/L (39-308) Creatine Kinase MB < 0.5 ng/ml (0.5-3.6) Creatine Kinase MB Ratio (0-3.0) Troponin I < 0.015 ng/ml (0-0.045) Anion Gap 7.0 mmol/L (3-11) Est Creatinine Clear Calc Drug Dose 183.7 ml/min Estimated GFR () 133.2 Estimated GFR (Non- 114.9 BUN/Creatinine Ratio 11.0 (10-20) Calcium Level 8.2 mg/dl (8.5-10.1)
--- NOTE | 2016-11-29 13:54 | GASTROINTESTINAL CONSULTATION ---
DATE OF CONSULTATION: 11/29/2016 DATE OF CONSULTATION: 11/29/2016. ATTENDING PHYSICIAN: Dr. Burk. CONSULTING PHYSICIAN: Dr. Gilman. REASON FOR CONSULTATION: GI bleed. HISTORY OF PRESENT ILLNESS: Parrish Ochoa is a 41-year-old male with a past medical history of Momo-en-Y gastric bypass performed at [facility] approximately 10 years ago who presented to the Department of Emergency Medicine yesterday following a workup by his PCP, Dr. Jade for chest pain. Laboratory studies revealed that his H\T\H was low at 6.0 and 24.6. He subsequently was admitted and did undergo a chest x-ray which was unremarkable and laboratory studies following transfusion of 4 units of packed red blood cells revealed an H\T\H of 8.0 and 29.5. He was placed on a Protonix drip at 8 mg per hour. I was asked to see the patient this morning. He denied any abdominal pain, fevers, chills, nausea, vomiting, diarrhea, hematemesis, melena, hematochezia. He states that he did have heme positive stools in the ER; however his stool has been brown. He denies any history of peptic ulcer disease, anastomotic ulcer or upper endoscopy or colonoscopy in the past. He did state that in the interim since having his Momo-en-Y gastric bypass approximately 10 years ago he did have gallstone pancreatitis, for which he underwent a cholecystectomy for approximately 5 years ago at [facility]. He denies any further complaints. PAST MEDICAL HISTORY: Significant for obesity, hypertension, pancreatitis. PAST SURGICAL HISTORY: Includes cholecystectomy, laparoscopic as well as Momo-en-Y gastric bypass. ALLERGIES: None. MEDICATIONS: At present Protonix 8 mg per hour drip, Maalox 15 mL p.o. q. 4 p.r.n. dyspepsia, milk of magnesia 30 mL p.o. q. 12 p.r.n. constipation, Zofran 4 mg IV q. 6 p.r.n. nausea, morphine 2 mg IV q. 30 p.r.n. chest pain, MiraLax 17 grams p.o. daily p.r.n. constipation. SOCIAL HISTORY: He is . He denies any tobacco, alcohol or illicit drug use. FAMILY HISTORY: Negative for GI malignancy or inflammatory bowel disease. REVIEW OF SYSTEMS: Negative x12 system review other than pertinent positives listed in the HPI. PHYSICAL EXAMINATION: VITAL SIGNS: Include a temp 36.6, pulse 73, respirations 22, blood pressure 126/89, pulse ox 96% on room air. GENERAL EXAMINATION: He is awake, cooperative in no acute distress. HEAD: Normocephalic, atraumatic. EYES: Pupils equally round. Extraocular muscles are intact. EARS, NOSE, THROAT: External evaluation of ears and nose are normal. Oropharynx is clear. NECK: Soft and supple. There is no JVD or lymphadenopathy. CHEST: Clear to auscultation bilaterally. CARDIOVASCULAR SYSTEM: Regular rate and rhythm. ABDOMEN: Soft, nontender, nondistended. Positive bowel sounds. There is no hepatosplenomegaly or stigmata of chronic liver disease. EXTREMITIES: No clubbing, cyanosis, or edema. SKIN: Soft, pink. Good turgor. LABORATORY DATA: Are reviewed in the HPI. IMPRESSION: A 41-year-old male with anemia, heme positive stools requiring transfusion. PLAN: At the present time, I would recommend that the patient be maintained on a Protonix drip 8 mg per hour. I will keep patient n.p.o. and recommend that he undergo an upper endoscopy today for further evaluation of his symptoms. I discussed the case in detail with the patient and his . They were in agreement with this plan. I will make further recommendations following the above noted testing. Once again, thanks for allowing me to participate in the care of this patient. If you have any further questions, please do not hesitate in contacting me.
[2016-11-29] MEDS ORDERED: MIDAZOLAM HCL 1 MG/ML 2ML VIAL ONE (14:26)
[2016-11-29] MEDS ORDERED: PROPOFOL IV EMULSION 10 MG/ML 20 ML VIAL IV ONE (14:27)
[2016-11-29] MEDS ORDERED: LIDOCAINE HCL 2% 2 ML VIAL (20MG/ML) ONE (14:27)
[2016-11-29] MEDS ORDERED: ONDANSETRON INJ 2 MG/ML 2 ML VIAL ONE (14:27)
[2016-11-29] MEDS ORDERED: ATROPINE SULFATE 0.1 MG/ML 5ML SYR IV PRN (14:45)
[2016-11-29] MEDS ORDERED: EpHEDrine SULFATE INJ 50 MG/ML AMP IV PRN (14:45)
--- NOTE | 2016-11-29 15:10 | Anesthesiology Progress Note ---
Anesthesia Post Op Note Date & Time Nov 29, 2016 at 15:10 Vital Signs Pain Intensity: 0.0 Vital Signs Past 12 Hours Date Time Temp Pulse Resp B/P Pulse Ox O2 Delivery O2 Flow Rate FiO2 11/29/16 14:12 36.6 73 22 126/89 96 Room Air 11/29/16 11:42 36.6 73 22 126/89 96 Room Air 11/29/16 08:00 Room Air 11/29/16 07:29 36.7 64 18 144/88 98 Room Air 11/29/16 05:32 63 130/80 11/29/16 05:29 36.7 63 20 130/80 96 11/29/16 04:27 36.5 77 18 121/69 94 11/29/16 04:00 Room Air 11/29/16 03:57 36.6 70 18 130/68 93 Notes Mental Status: alert / awake / arousable, participated in evaluation Pt Amnestic to Procedure: Yes Nausea / Vomiting: adequately controlled Pain: adequately controlled Airway Patency, RR, SpO2: stable & adequate BP & HR: stable & adequate Hydration State: stable & adequate Anesthetic Complications: no major complications apparent
--- NOTE | 2016-11-29 15:41 | GI REPORT ---
Procedure Date: 11/29/2016 2:01 PM Procedure: Upper GI endoscopy Indications: Iron deficiency anemia secondary to chronic blood loss, Heme positive stool Medicines: Monitored Anesthesia Care Complications: No immediate complications. Estimated Blood Loss: Estimated blood loss: none. Procedure: Pre-Anesthesia Assessment: - Prior to the procedure, a History and Physical was performed, and patient medications and allergies were reviewed. The patient's tolerance of previous anesthesia was also reviewed. The risks and benefits of the procedure and the sedation options and risks were discussed with the patient. All questions were answered, and informed consent was obtained. Prior Anticoagulants: The patient has taken no previous anticoagulant or antiplatelet agents. ASA Grade Assessment: III - A patient with severe systemic disease. After reviewing the risks and benefits, the patient was deemed in satisfactory condition to undergo the procedure. After obtaining informed consent, the endoscope was passed under direct vision. Throughout the procedure, the patient's blood pressure, pulse, and oxygen saturations were monitored continuously. The Scope was introduced through the mouth, and advanced to the jejunum. The upper GI endoscopy was accomplished without difficulty. The patient tolerated the procedure well. Findings: The esophagus was normal. A few 3 mm bleeding angioectasias were found in the stomach. Coagulation for hemostasis using heater probe was successful. Estimated blood loss was minimal. A benign-appearing, intrinsic moderate stenosis was found at the anastomosis. This was traversed. A TTS dilator was passed through the scope. Dilation with a 12-13.5-15 mm balloon (to a maximum balloon size of 15 mm) dilator was performed. The dilation site was examined and showed mild improvement in luminal narrowing. The examined jejunum was normal. Impression: - Normal esophagus. - A few bleeding angioectasias in the stomach. Treated with a heater probe. 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 Dilated. - Normal examined jejunum. - No specimens collected. Recommendation: - [facility] to [facility]. - Advance diet as tolerated. - Use sucralfate suspension 1 gram PO QID for 10 days. Juan Francisco Gilman DO 11/29/2016 3:40:17 PM This report has been signed electronically. Note Initiated On: 11/29/2016 2:01 PM
[2016-11-29] MEDS: SUCRALFATE 1 GM/10 ML UDC PO SCH ×2 (16:33→21:05)
[2016-11-30] MEDS: PANTOprazole INJ 40 MG in DEXTROSE 5% 100ML 100 ML IV SCH ×2 (02:14→07:54)
[2016-11-30 03:58] VITALS: BP 130/81; PULSE 65; TEMP 36.6; O2SAT 96
[2016-11-30 07:18] LABS: BUN/CREATININE RATIO 9.5 (10-20); CALCIUM 8.5 mg/dl (8.5-10.1); CREATININE 0.73 mg/dl (0.60-1.40); POTASSIUM 3.9 mmol/L (3.5-5.1)
[2016-11-30 07:38] LABS: HEMATOCRIT 30.6 % (42-52); MEAN CELL VOLUME 66.7 fL (80-100); MEAN CORPUSCULAR HEMOGLOBIN 17.9 pg (25-34); MEAN CORPUSCULAR HGB CONC 26.8 g/dl (32-36); PLATELET COUNT 286 K/uL (130-400); RED BLOOD COUNT 4.59 M/uL (4.7-6.1); WHITE BLOOD COUNT 5.95 K/uL (4.8-10.8)
[2016-11-30 07:43] LABS: ANISOCYTOSIS PRESENT; BASO % 1.2 %; BASO ABS # 0.07 K/uL (0-0.2); COMPLETE YES; EOS % 1.3 %; HYPOCHROMIA PRESENT; IG% 0.2 %; LYMPH % 28.9 %; LYMPH ABS # 1.72 K/uL (1.2-3.4); MICROCYTOSIS PRESENT; MONO % 5.9 %; NEUT % 62.5 %
[2016-11-30] MEDS: SUCRALFATE 1 GM/10 ML UDC PO SCH (08:18)
[2016-11-30] MEDS: NSS + 20MEQ KCL 1000ML 1,000 ML IV SCH (08:19)
[2016-11-30 08:43] VITALS: BP 141/91; PULSE 85; TEMP 36.6; O2SAT 98
[2016-11-30] MEDS ORDERED: CYANOCOBALAMIN 1000 MCG/ML VIAL IM ONE (10:28)
[2016-11-30] MEDS ORDERED: SUCR1TAB PO (10:32)
[2016-11-30] MEDS ORDERED: FERR50TA3 PO (10:38)
--- NOTE | 2016-11-30 10:43 | Discharge Instructions ---
Discharge Instructions Admission Reason for Admission: Anemia, Chest Pain, Gi Bleed Discharge Discharge Diagnosis / Problem: Anemia due to slow bleeding ulcer Discharge Goals Goal(s): Improve function, Therapeutic intervention, Prevent Disease Progression Activity Recommendations Activity Limitations: resume your previous activity . Instructions / Follow-Up Instructions / Follow-Up Your haemoglobin was less than 7 in the ED so we therefore transfused you with 4 unit of red blood cells You were see by GI who found a couple small bleeding ulcers in your stomach. These were burned and the bleeding was stopped. You also had a balloon dilate your exit from your stomach. Please take the medications prescribed to you. Please stop your aspirin and do not take alleve. Please use tylenol for headaches and pain control. Please follow up with your PCP in the next 1-2 weeks for further blood work and management of your ulcers. We will be sending him information from your hospital stay. If you have any worsening fatigue, chest, pain, shortness of breath, abdominal pain, vomiting or blood in your stool then please come back to the emergency department. Current Hospital Diet Patient's current hospital diet: AHA Diet (Heart Healthy) Discharge Diet Recommended Diet: Regular Diet Procedures Procedures Performed: Esophagogastroduodenoscopy with dilation and bicap Pending Studies Studies pending at discharge: no Medical Emergencies . Who to Call and When: Medical Emergencies: If at any time you feel your situation is an emergency, please call 911 immediately. . Non-Emergent Contact Non-Emergency issues call your: Primary Care Provider . . "Provider Documentation" section prepared by Chas Ricci. VTE Core Measure Inpt VTE Proph given/why not?: Contraindicated
--- NOTE | 2016-11-30 10:50 | Cardiology Follow-Up ---
Subjective Subjective Date of Service: Nov 30, 2016. Pt evaluation today including: conversation w/ patient, physical exam, chart review, lab review, review of studies, conversation w/ network systems consultant, review of inpatient medication list Pain: none PO Intake: good Voiding: no voiding problems Additional Details: no cp, sob, n/v/d, syncope, bleeding. asymptomatic Problem List Medical Problems: (1) Hypokalemia Status: Acute (2) Symptomatic anemia Status: Acute Review of Systems Constitutional: No chills, No fatigue, No fever, No problem reported, No weakness, No weight loss Eyes: No diplopia, No problem reported, No worsening of vision ENT: No hearing loss, No problem reported, No trouble swallowing, No unusual epistaxis Respiratory: No cough, No dyspnea at rest, No dyspnea on exertion (only with very heavy exertion), No hemoptysis, No problem reported, No shortness of breath , No sputum, No wheezing Cardiac: No PND, No chest pain, No claudication, No edema, No orthopnea, No palpitations, No problem reported Breast: No breast pain, No problem reported Abdomen: No GI bleeding (FOBT was positive), No constipation, No diarrhea, No nausea, No pain, No problem reported, No vomiting Musculoskeletal: No calf pain, No joint pain, No muscle pain, No problem reported, No swelling Male : No dysuria, No hematuria, No incontinence, No problem reported Neurologic: No balance problems, No memory loss, No numbness/tingling, No paralysis, No problem reported, No vertigo, No weakness Psychiatric: No anxiety, No depression symptoms, No insomnia, No problem reported, No substance abuse Heme: No abnormal bleeding/bruising, No problem reported Endo: No excessive thirst, No excessive urination, No fatigue Skin: No bleeding, No color change, No itch, No new/changing skin lesions, No rash Objective Vital Signs Last Vital Signs Documentation Date Time Temp Pulse Resp B/P Pulse Ox O2 Delivery O2 Flow Rate FiO2 11/30/16 08:43 36.6 85 20 141/91 98 Room Air 11/29/16 15:45 2 Physical Exam: General Appearance: WD/WN, no apparent distress Eyes: bilateral eyes EOMI, bilateral eyes normal inspection ENT: normal ENT inspection, hearing grossly normal Neck: supple, no adenopathy, thyroid normal, no JVD Respiratory/Chest: chest non-tender, lungs clear, normal breath sounds, no respiratory distress, no accessory muscle use Cardiovascular: regular rate, rhythm, no edema, no gallop, no JVD, no murmur Abdomen: normal bowel sounds, non tender, soft, no organomegaly Extremities: normal range of motion, non-tender, normal inspection, no pedal edema, no calf tenderness Neurologic/Psychiatric: alert, normal mood/affect, oriented x 3 Skin: normal color, warm/dry, no rash, + pertinent finding (tattoos) Lymphatic: no adenopathy Assessment and Plan 1. Anemia 2. Exertional angina - only with very heavy exertion. EGD with cautery no plan for heart cath at this time. f/u with Dr. singer in one month, sooner if symptomatic. GI follow up. Hgb 8.2 today. remains asymptomatic. ECG reviewed - no changes. discussion with patient - he is in full agreement and knows to call if symptomatic. Medications: Current Inpatient Medications Medications (Trade) Dose Ordered Sig/Kennedi Route Start Time Stop Time Status Last Admin Dose Admin Potassium Chloride/Sodium Chloride (Nss + 20meq KCl 1000ml) 1,000 ml @ 75 mls/hr [id number] IV 11/28/16 19:00 12/28/16 16:35 11/30/16 08:19 75 MLS/HR Acetaminophen (Tylenol Tab) 650 mg Q4H PRN PO 11/28/16 16:45 12/28/16 16:44 11/29/16 08:32 650 MG Al Hydrox/Mg Hydrox/Simethicone (Maalox Max Susp) 15 ml Q4H PRN PO 11/28/16 16:45 12/28/16 16:44 Magnesium Hydroxide (Milk Of Magnesia Susp) 30 ml Q12H PRN PO 11/28/16 16:45 12/28/16 16:44 Ondansetron HCl (Zofran Inj) 4 mg Q6H PRN IV 11/28/16 16:45 12/28/16 16:44 Nitroglycerin (Nitrostat Tab) 0.4 mg UD PRN SL 11/28/16 16:45 12/28/16 16:44 Morphine Sulfate (MoRPHine SULFATE INJ) 2 mg Q30M PRN IV 11/28/16 16:45 12/12/16 16:44 Polyethylene 17 gm 17 gm DAILY PRN PO 11/28/16 16:45 12/28/16 16:44 Pantoprazole Sodium/Dextrose (Protonix Inj/D5 100ml) 100 ml @ 20 mls/hr Q5H IV 11/28/16 21:00 12/28/16 16:59 11/30/16 07:54 20 MLS/HR Sucralfate (Carafate Susp) 1 gm QID PO 11/29/16 17:00 12/29/16 16:59 11/30/16 08:18 1 GM Cyanocobalamin (Vitamin B-12 Inj) 1,000 mcg ONE STAT IM 11/30/16 10:28 11/30/16 10:29 UNV Lab Results: 11/30/16 06:23 Red Blood Count 4.59, Mean Corpuscular Volume 66.7 #, Mean Corpuscular Hemoglobin 17.9, Mean Corpuscular Hemoglobin Concent 26.8, Neutrophils (%) (Auto ) 62.5, Lymphocytes (%) (Auto) 28.9, Monocytes (%) (Auto) 5.9, Eosinophils (%) ( Auto) 1.3, Basophils (%) (Auto) 1.2, Neutrophils # (Auto) 3.72, Lymphocytes # ( Auto) 1.72, Monocytes # (Auto) 0.35, Eosinophils # (Auto) 0.08, Basophils # ( Auto) 0.07 11/30/16 06:23 Test 11/30/16 06:23 White Blood Count 5.95 K/uL (4.8-10.8) Red Blood Count 4.59 M/uL (4.7-6.1) Hemoglobin 8.2 g/dL (14.0-18.0) Hematocrit 30.6 % (42-52) Mean Corpuscular Volume 66.7 fL (80-100) Mean Corpuscular Hemoglobin 17.9 pg (25-34) Mean Corpuscular Hemoglobin Concent 26.8 g/dl (32-36) Platelet Count 286 K/uL (130-400) Neutrophils (%) (Auto) 62.5 % Lymphocytes (%) (Auto) 28.9 % Monocytes (%) (Auto) 5.9 % Eosinophils (%) (Auto) 1.3 % Basophils (%) (Auto) 1.2 % Neutrophils # (Auto) 3.72 K/uL (1.4-6.5) Lymphocytes # (Auto) 1.72 K/uL (1.2-3.4) Monocytes # (Auto) 0.35 K/uL (0.11-0.59) Eosinophils # (Auto) 0.08 K/uL (0-0.5) Basophils # (Auto) 0.07 K/uL (0-0.2) RDW Standard Deviation 58.7 fL (36.4-46.3) RDW Coefficient of Variation 24.5 % (11.5-14.5) Immature Granulocyte % (Auto) 0.2 % Immature Granulocyte # (Auto) 0.01 K/uL (0.00-0.02) Hypochromasia PRESENT Anisocytosis PRESENT Microcytosis PRESENT Anion Gap 8.0 mmol/L (3-11) Est Creatinine Clear Calc Drug Dose 190.9 ml/min Estimated GFR () 135.4 Estimated GFR (Non- 116.8 BUN/Creatinine Ratio 9.5 (10-20) Calcium Level 8.5 mg/dl (8.5-10.1)
[2016-11-30 11:02] VITALS: BP 141/91; PULSE 85; TEMP 36.6; O2SAT 98
--- NOTE | 2016-11-30 11:03 | Discharge Summary ---
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 Immunizations: Have You Had Influenza Vaccine: Yes Influenza Vaccine Date: Oct 07, 2010 History of Tetanus Vaccine?: Yes Tetanus Immunization Date: Nov 21, 2009 History of Pneumococcal: Unknown History of Hepatitis B Vaccine: Unknown Procedures: Esophagogastroduodenoscopy Consultations: GI, Cardiology Medication Reconciliation New Medications: Ferrous Sulfate (Iron (Ferrous Sulfate)) 50 Mg Tab 100 MG PO DAILY for 30 Days, #60 Take 100mg of Iron daily for one month Sucralfate (Sucralfate) 1 Gm Tab 1 TAB PO QID for 10 Days, #40 TAB 3 Refills Continued Medications: Hydrochlorothiazide (Hydrochlorothiazide) 12.5 Mg Tab 12.5 MG PO DAILY for 90 Days, #90 TAB 3 Refills Metoprolol Tartrate (Lopressor) (Lopressor) 25 Mg Tab 25 MG PO BID, TAB Discharge Exam Patient sitting comfortably in bed and in no acute distress. No acute events overnight. Plan is for discharge today with follow up with PCP in 1-2 weeks and cardiology in 1 month. Patient given B12 injection before he leaves hospital Review of Systems: Constitutional: No chills, No fever, No sweats Cardiovascular: No chest pain, No edema, No palpitations Abdomen: No constipation, No diarrhea, No nausea, No pain, No vomiting Physical Exam: General Appearance: WD/WN, no apparent distress Respiratory/Chest: chest non-tender, lungs clear, normal breath sounds Cardiovascular: regular rate, rhythm, no edema, no gallop, no murmur Abdomen / GI: normal bowel sounds, non tender, soft Extremities: normal inspection, no calf tenderness, no pedal edema Neurologic/Psychiatric: alert, normal reflexes, oriented x 3 Skin: normal color, warm/dry, no rash Hospital Course 41 year old male with hx of gastric bypass was sent to the ED after routine blood work done by Plastic Technician showed a Hgb of 6.0. Patient was having fatigue and occasional chest pain over the past few months. In the ED he was given a unit of PRBC and was given 3 subsequent units when admitted to the [facility]. Patient had admitted to aspirin and alleve usage over the past few months which most likely contributed to his bleeding. His FOBT in the ED was positive. GI was consulted and the patient was planned to have an upper endoscopy. Upper endoscopy found a couple angioectasias which were cauterized. He also had a balloon dilation at the point of his gastric bypass anastomosis as it was found to be slightly narrowed. His Hgb kasey over the following two days and on the day of discharge it was 8.2. He was asymptomatic on day of discharge and he was given a B12 injection before he left. He was sent home with a 10 day sucralfate prescription as well as oral iron supplementation. The patient should get a cbc, iron studies as well as a B12 level at his PCP upon follow up. Patient is also to have a cardiology appointment with Dr. Guzman in 1 months time. Total Time Spent: Less than 30 minutes This includes examination of the patient, discharge planning, medication reconciliation, and communication with other providers. Discharge Instructions Please refer to the electronic Patient Visit Report (Discharge Instructions) for additional information. Additional Copies To Saji Guzman MD; Yue Jade MD
--- NOTE | 2016-11-30 12:02 | PROGRESS NOTE ---
DATE: 11/30/2016 RACE: . I had the pleasure of seeing Parrish Ochoa at his bedside today. He is feeling quite well. He is sitting up and eating lunch. He denies any abdominal pain, fevers, chills, nausea, vomiting, diarrhea, hematemesis, melena or hematochezia and has no further complaints. PHYSICAL EXAMINATION: VITAL SIGNS: His temp is 36.6, pulse 85, respirations 20, blood pressure 141/91, pulse ox 98% on room air. GENERAL: He is obese, cooperative, in no acute distress. ABDOMEN: Soft, nontender, nondistended. Positive bowel sounds. LABORATORY STUDIES: From today include an H\T\H of 8.2 and 30.6. 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 PLAN: I would recommend that the patient be continued on Carafate 1 g p.o. q.i.d. a.c. and at bedtime for 10 days. I would also recommend that he be on iron therapy. I asked him to follow up in our office in 2-4 weeks and to have a repeat H\T\H at that time. Consideration could be given to performing a colonoscopy non-emergently in the next 3-6 months, depending on how he responds to oral iron therapy. I did warn him that his stools could be black secondary to iron therapy though if he has any other symptoms such as lightheadedness, dizziness, abdominal pain or other complaints, he should contact our office immediately. Once again, thanks for allowing me to participate in the care of this patient. If you have any further questions, please do not hesitate in contacting me.
--- NOTE | 2016-11-30 17:11 | Progress Note ---
Progress Note Resident Physician Supervision Note: I was present with Dr. Ricci during the history and exam. I discussed the case with the resident and agree with the findings and plan as documented in the note. Any exceptions or clarifications are listed here: 41-year-old male admitted through the emergency department after precatheterization blood work noted a low hemoglobin. Patient was transfused 4 units of packed red blood cells; yesterday he underwent an EGD which revealed arteriovenous malformations of the gastric pouch which were amenable to coagulation using a heater probe. Today, the patient is tolerating a full diet without difficulty. Denies chest pain. Denies abdominal pain fever chills nausea vomiting diarrhea hematemesis or melena. The patient is discharged. He will follow-up with his primary care physician for continued care and monitoring of his hemoglobin. We will supplement his iron. He was given a B12 injection before discharge. Given his history of gastric bypass, recommend he discuss with his primary care physician supplementation for the usual vitamin deficiencies and calorie status post gastric bypass. Documented By: Benji Burk
== END 2016-11-30 11:45 | disposition home or self-care (01) | DRG 812 ==
LOC: ENRESERVTM → ENRESERVDT → C.EDB 13:38 → C.2T 16:31
PROVIDERS: ADMIT Family Medicine; ATTEND Family Medicine
PROC: 0DJ08ZZ Inspection of Upper Intestinal Tract, Via Natural or Artificial Opening Endoscopic (ICD-10-PCS; principal; 2016-11-29 14:00)
DX: D62 Acute posthemorrhagic anemia (principal); I10 Essential (primary) hypertension; I20.8 Other forms of angina pectoris; Z98.84 Bariatric surgery status; E66.9 Obesity, unspecified